=== PATIENT | female | born 1940 | race Hispanic/Latino ===

== ENCOUNTER 2023-12-22 09:40 | Inpatient (IN) | payer MEDICARE ==
[2023-12-22] VITALS (11 sets, daily range): BP systolic 114–174; BP diastolic 70–92
[~2023-12-22] VITALS: Ht 162.6 cm; Wt 57.0 kg
[2023-12-22] MEDS ORDERED: methylPREDNISolone SODIUM SUCC 125 MG/2 ML SDV IV ONE (09:50)
[2023-12-22] MEDS ORDERED: IPRATROPIUM-Albuterol 0.5MG-2.5MG/3 ML NEB ONE ×2 (09:50)
[2023-12-22] MEDS ORDERED: AZITHROMYCIN 500 MG in SODIUM CHLORIDE 0.9% 250 ML IV ONE (09:50)
[2023-12-22 11:04] LABS: BASO% 0.9 % (0-3); EOS% 0.9 % (0-8); HEMATOCRIT 43.2 % (37.0-47.0); HEMOGLOBIN 14.2 g/dl (12.0-16.0); IMMATURE GRANULOCYTES 0.2 % (0.0-5.0); LYMPH% 16.3 % (15-41); MEAN CELL VOLUME 90.2 fL CALC (80.0-100.0); MEAN CORPUSCULAR HGB 29.6 pG CALC (26.0-32.0); MEAN CORPUSCULAR HGB CONC 32.9 g/dL CAL (32.0-36.0); MONO% 9.8 % (2-13); NEUT# 3.8 thou/uL (2.00-7.15); NEUT% 71.9 % (42-76); RED BLOOD COUNT 4.79 mill/uL (4.20-5.60); RED CELL DISTRI WIDTH 14.4 % (11.5-15.5)
[2023-12-22 11:06] LABS: ALKALINE PHOSPHATASE 81 u/l (38-126); ANION GAP 10 (6-22 (CALC)); BILIRUBIN, TOTAL 0.7 mg/dL (0.02-1.3); BUN 11 mg/dL (8-23); BUN/CREATININE RATIO 11 (12-20 (CALC)); CARBON DIOXIDE 24 mmol/l (22-30); CHLORIDE 107 mmol/l (95-108); ESTIMATED GFR 56 ML/MIN (>=90 (CALC)); POTASSIUM 3.9 mmol/l (3.5-5.1); SGOT/AST 30 u/l (9-36); SODIUM 137 mmol/l (137-146)
[2023-12-22] MEDS ORDERED: SODIUM CHLORIDE 0.9% 1,000 ML IV PRN (12:50)
[2023-12-22] MEDS ORDERED: MAGNESIUM HYDROXIDE 30 ML UDC PO PRN (12:50)
[2023-12-22] MEDS ORDERED: ACETAMINOPHEN 325 MG/TAB PO PRN (12:50)
[2023-12-22] MEDS ORDERED: hydrALAZINE HCL 20 MG/ML VIAL(1 ML) IV PRN (13:00)
[2023-12-22] MEDS ORDERED: ALBUTEROL SULFATE 8 GM INH IN SCH (19:00)
[2023-12-22] MEDS ORDERED: LOSARTAN Potassium 25 MG/TAB PO SCH (21:00)
[2023-12-22] MEDS ORDERED: ENOXAPARIN SODIUM 40 MG/0.4 ML SYR SC SCH (21:00)
[2023-12-23] VITALS (9 sets, daily range): BP systolic 154–178; BP diastolic 78–94
[2023-12-23 04:47] LABS: BASO% 0.2 % (0-3); HEMATOCRIT 41.6 % (37.0-47.0); HEMOGLOBIN 13.7 g/dl (12.0-16.0); IMMATURE GRANULOCYTES 0.3 % (0.0-5.0); LYMPH% 8.5 % (15-41); MEAN CELL VOLUME 89.7 fL CALC (80.0-100.0); MEAN CORPUSCULAR HGB 29.5 pG CALC (26.0-32.0); MEAN CORPUSCULAR HGB CONC 32.9 g/dL CAL (32.0-36.0); MONO% 7.9 % (2-13); NEUT# 5.07 thou/uL (2.00-7.15); NEUT% 83.1 % (42-76); RED BLOOD COUNT 4.64 mill/uL (4.20-5.60); RED CELL DISTRI WIDTH 14.4 % (11.5-15.5)
[2023-12-23 05:22] LABS: ALBUMIN 3.6 g/dL (3.2-5.0); CHOLESTEROL HDL RATIO 2.5 (<4.4 (CALC)); CREATININE 0.8 mg/dL (0.5-1.0); MAGNESIUM 2.2 mg/dL (1.6-2.3); POTASSIUM 4.5 mmol/l (3.5-5.1); TOTAL PROTEIN 6.5 g/dL (6.3-8.2)
[2023-12-23 05:24] LABS: BILIRUBIN, TOTAL 0.3 mg/dL (0.02-1.3)
[2023-12-23] MEDS ORDERED: DEXAMETHASONE SOD. PHOSPHATE 10 MG/ML VIAL IV SCH (09:00)
[2023-12-23] MEDS ORDERED: TIOTROPIUM BROMIDE MONOHYDRATE 2.5 MCG/ACT 4 GM INH IN SCH (09:00)
[2023-12-23] MEDS ORDERED: AZITHROMYCIN 500 MG in SODIUM CHLORIDE 0.9% 250 ML IV SCH (09:00)
[2023-12-24] VITALS (12 sets, daily range): BP systolic 114–188; BP diastolic 59–105
[2023-12-24 05:06] LABS: BASO% 0.2 % (0-3); HEMATOCRIT 41.6 % (37.0-47.0); HEMOGLOBIN 13.5 g/dl (12.0-16.0); IMMATURE GRANULOCYTES 0.8 % (0.0-5.0); LYMPH% 8.1 % (15-41); MEAN CORPUSCULAR HGB 29.5 pG CALC (26.0-32.0); MEAN CORPUSCULAR HGB CONC 32.5 g/dL CAL (32.0-36.0); MONO% 5.3 % (2-13); NEUT# 9.35 thou/uL (2.00-7.15); NEUT% 85.6 % (42-76); RED BLOOD COUNT 4.57 mill/uL (4.20-5.60); RED CELL DISTRI WIDTH 14.4 % (11.5-15.5)
[2023-12-24 05:16] LABS: ALBUMIN 3.5 g/dL (3.2-5.0); BILIRUBIN, TOTAL 0.3 mg/dL (0.02-1.3); CREATININE 0.9 mg/dL (0.5-1.0); MAGNESIUM 1.9 mg/dL (1.6-2.3); POTASSIUM 3.8 mmol/l (3.5-5.1); TOTAL PROTEIN 6.3 g/dL (6.3-8.2)
[2023-12-25] VITALS: BP 152/75
[2023-12-25 00:41] VITALS: BP 152/75
[2023-12-25 04:00] VITALS: BP 171/81
[2023-12-25 04:52] VITALS: BP 171/81
[2023-12-25 05:29] LABS: BASO% 0.2 % (0-3); HEMATOCRIT 40.2 % (37.0-47.0); IMMATURE GRANULOCYTES 1.9 % (0.0-5.0); LYMPH% 14.9 % (15-41); MEAN CORPUSCULAR HGB 29.4 pG CALC (26.0-32.0); MEAN CORPUSCULAR HGB CONC 32.3 g/dL CAL (32.0-36.0); MONO% 8.4 % (2-13); NEUT# 4.61 thou/uL (2.00-7.15); NEUT% 74.6 % (42-76); RED BLOOD COUNT 4.42 mill/uL (4.20-5.60); RED CELL DISTRI WIDTH 14.5 % (11.5-15.5)
[2023-12-25 05:39] LABS: ALBUMIN 3.2 g/dL (3.2-5.0); BILIRUBIN, TOTAL 0.4 mg/dL (0.02-1.3); CREATININE 0.8 mg/dL (0.5-1.0); MAGNESIUM 1.8 mg/dL (1.6-2.3); POTASSIUM 3.7 mmol/l (3.5-5.1); TOTAL PROTEIN 5.9 g/dL (6.3-8.2)
[2023-12-25] MEDS ORDERED: COZAAR50 MG PO (08:58)
[2023-12-25 09:00] VITALS: BP 158/77
[2023-12-25] MEDS ORDERED: PREDNISONE10 MG PO (09:00)
[2023-12-25] MEDS ORDERED: DOXYCYCLINE100 MG PO (09:01)
[2023-12-25 10:34] VITALS: BP 140/79
== END 2023-12-25 14:06 | disposition home or self-care (01) | DRG 178 ==
LOC: ED 09:40 → ED-I 12:15 → MS2 12:49 → ED 12:49 → MS2 13:51
PROVIDERS: Family Medicine; Nurse Practitioner Family; ADMIT Student in an Organized Health Care Education/Training Program; ATTEND Student in an Organized Health Care Education/Training Program
DX: U07.1 COVID-19 (principal); J44.1 Chronic obstructive pulmonary disease with (acute) exacerbation; J96.11 Chronic respiratory failure with hypoxia; I10 Essential (primary) hypertension; F03.B0 Unspecified dementia, moderate, without behavioral disturbance, psychotic disturbance, mood disturbance, and anxiety; Z99.81 Dependence on supplemental oxygen
CPT/HCPCS: A4627; J1650; Q9967

== ENCOUNTER 2024-05-26 18:04 | Emergency (ER) | payer MEDICARE ==
[~2024-05-26] VITALS: Ht 162.6 cm; Wt 49.0 kg
[2024-05-26] VITALS (9 sets, daily range): BP systolic 124–202; BP diastolic 63–101
[~2024-05-26 18:04] MED LIST: COZAAR50 MG PO; DOXYCYCLINE100 MG PO; PREDNISONE10 MG PO
[2024-05-26] MEDS ORDERED: ONDANSETRON HCl 4 MG/2 ML SDV IV ONE (18:20)
[2024-05-26 18:30] LABS: BASO% 0.6 % (0-3); EOS% 1.5 % (0-8); HEMATOCRIT 40.9 % (37.0-47.0); HEMOGLOBIN 12.9 g/dl (12.0-16.0); IMMATURE GRANULOCYTES 0.4 % (0.0-5.0); LYMPH% 22.4 % (15-41); MEAN CELL VOLUME 92.5 fL CALC (80.0-100.0); MEAN CORPUSCULAR HGB 29.2 pG CALC (26.0-32.0); MEAN CORPUSCULAR HGB CONC 31.5 g/dL CAL (32.0-36.0); NEUT# 4.54 thou/uL (2.00-7.15); NEUT% 66.1 % (42-76); RED BLOOD COUNT 4.42 mill/uL (4.20-5.60); RED CELL DISTRI WIDTH 14.5 % (11.5-15.5)
[2024-05-26 18:46] LABS: INTERNATIONAL NORMALIZED RATIO 0.9 RATIO (0.7-1.3); POTASSIUM 3.9 mmol/l (3.5-5.1); TOTAL PROTEIN 6.6 g/dL (6.3-8.2)
[2024-05-26 18:47] LABS: ALBUMIN 3.9 g/dL (3.2-5.0); BILIRUBIN, TOTAL 0.7 mg/dL (0.02-1.3); PROTHROMBIN TIME 10.2 SECONDS (9.0-12.5)
[2024-05-26] MEDS ORDERED: SODIUM CHLORIDE 0.9% 10 ML SYR IV PRN ×2 (19:05)
[2024-05-26] MEDS ORDERED: METOCLOPRAMIDE HCL 10 MG/2 ML SDV IV ONE (19:10)
[2024-05-26] MEDS ORDERED: niCARdipine HCL 25 MG/10 ML SDV IV ONE (19:26)
[2024-05-26] MEDS ORDERED: DEXTROSE 5% 250 ML IV ONE (19:27)
[2024-05-26] MEDS ORDERED: Pantoprazole Sodium 40 MG VIAL (Protonix) IV ONE (19:30)
[2024-05-26] MEDS ORDERED: FAMOTIDINE 10MG/ML 2ML SDV IV ONE (19:30)
[2024-05-26] MEDS ORDERED: Diph, Acellular Pertussis, Tet 0.5 ML/VIAL (Tdap) SDV IM ONE (19:45)
[2024-05-26] MEDS ORDERED: ACETAMINOPHEN 1,000 MG/100 ML VIAL IV ONE (20:05)
== END 2024-05-26 20:23 | disposition short-term general hospital (02) ==
LOC: ED 18:04
PROVIDERS: Nurse Practitioner
DX: S06.5X0A Traumatic subdural hemorrhage without loss of consciousness, initial encounter (principal); S06.6X0A Traumatic subarachnoid hemorrhage without loss of consciousness, initial encounter; S00.03XA Contusion of scalp, initial encounter; F10.129 Alcohol abuse with intoxication, unspecified; Y90.6 Blood alcohol level of 120-199 mg/100 ml; I10 Essential (primary) hypertension; F03.90 Unspecified dementia, unspecified severity, without behavioral disturbance, psychotic disturbance, mood disturbance, and anxiety; J44.9 Chronic obstructive pulmonary disease, unspecified; E78.5 Hyperlipidemia, unspecified; W13.8XXA Fall from, out of or through other building or structure, initial encounter; Z99.81 Dependence on supplemental oxygen
CPT/HCPCS: 90715; J0131; J1953; J2405; J2470; J2765